=== PATIENT | male | born 1995 | race Caucasian/White ===

== ENCOUNTER 2021-09-07 23:24 | Emergency (ER) | payer OTHER, SELFPAY ==
--- NOTE | ~2021-09-07 | CT_ITS ---
EXAMINATION: CT abdomen pelvis w con INDICATION: Abdominal pain TECHNIQUE: Computed tomographic images of the abdomen and pelvis were obtained after the administrati on of 100 cc of Omnipaque 350 intravenous contrast. The dose-length product (DLP) was 183.63 mGy-cm. Automated exposure control and iterative reconstruction technique were employed. COMPARISON: None available FINDINGS: The lung bases are clear. The heart size is normal. There is periportal edema of the liver. The spleen, pancreas, gallbladder, and adrenal glands are normal. The kidneys are unremarkable. No p athologically enlarged abdominal or pelvic lymph nodes are identified. There is no free intraperitone al gas or evidence of bowel obstruction. There is a small volume of free fluid in the pelvis of uncle ar etiology. IMPRESSION: 1. Periportal edema and small volume of pelvic ascites of unclear etiology. Reviewed, dictated and finalized at location A.
[2021-09-07 23:25] VITALS: BP 121/76; PULSE 59; RESP 18; TEMP 36.5; O2SAT 100
--- NOTE | 2021-09-07 23:51 | ED.GENADULT ---
HPI - General Adult General Chief complaint: Abdominal Pain Stated complaint: Nausea/Vomitting Time Seen by Provider: 09/07/21 23:39 History of Present Illness HPI narrative: Patient 25-year-old gentleman who presents to emergency department with chief complaint of abdominal pain. Patient reports he has history of gastritis and has been scoped recently at [facility] in [facility]. Patient states that over the last several days he has had epigastric discomfort and nausea and vomiting patient reports has been unable to keep fluids down and unable to eat. Patient reports not had a bowel movement reports his abdomen is diffusely tender reports the pain is worse with movement and improved with rest also worsened whenever he attempts to eat or drink. Patient reports no prior surgical history to the abdomen but has had multiple scopes Related Data Allergies Allergy/AdvReac Type Severity Reaction Status Date / Time carbinoxamine [From [facility]] Allergy Hives Verified 09/08/21 00:03 pseudoephedrine [From [facility]] Allergy Hives Verified 09/08/21 00:03 Review of Systems Review of Systems: A 10 system review of systems was completed on the patient and is negative except for what is stated in the HPI. Nursing and ancillary documentation was reviewed. Exam Narrative: GENERAL: Well-appearing, well-nourished, and in no acute distress. HEAD: Normocephalic, atraumatic. EYES: PERRLA and EOMI. ENT: Nares clear, no rhinorrhea or epistaxis. Mucous membranes moist. NECK: Supple. CHEST: Clear to auscultation. No respiratory distress. HEART: Regular rate and rhythm. No murmur heard. Normal peripheral pulses. ABDOMEN: Soft, diffusely tender to palpation, nondistended, normal active bowel sounds. EXTREMITIES: Normal range of motion. No edema. SKIN: Warm, dry, no rash. NEURO: No focal deficits. Alert and oriented x3. PSYCH: Normal mood and affect. Course Vital Signs Vital signs: Vital Signs Temperature 36.5 C 09/07/21 23:25 Pulse Rate 59 L 09/07/21 23:25 Respiratory Rate 18 09/07/21 23:25 Blood Pressure 121/76 09/07/21 23:25 Pulse Oximetry 100 09/07/21 23:25 Temperature 36.5 C 09/07/21 23:25 Pulse Rate 62 09/08/21 01:51 Respiratory Rate 17 09/08/21 01:51 Blood Pressure 122/76 09/08/21 01:51 Pulse Oximetry 99 09/08/21 01:51 Medical Decision Making Vital Signs Vital Signs: Vital Signs Temperature 36.5 C 09/07/21 23:25 Pulse Rate 59 L 09/07/21 23:25 Respiratory Rate 18 09/07/21 23:25 Blood Pressure 121/76 09/07/21 23:25 Pulse Oximetry 100 09/07/21 23:25 Temperature 36.5 C 09/07/21 23:25 Pulse Rate 62 09/08/21 01:51 Respiratory Rate 17 09/08/21 01:51 Blood Pressure 122/76 09/08/21 01:51 Pulse Oximetry 99 09/08/21 01:51 Lab Data Result diagrams: 09/08/21 00:07 09/08/21 00:07 Labs: Lab Results 09/08/21 09/08/21 09/08/21 Range/Units 00:07 00:07 00:07 WBC 6.1 (4.5-10.0) K/mm3 RBC 4.62 (4.6-6.20) M/mm3 Hgb 14.5 (14.0-18.0) g/dL Hct 41.3 L (42.0-52.0) % MCV 89.4 (80-100) fl MCH 31.4 (26-34) pg MCHC 35.1 (32-36) g/dl RDW 12.0 (11.5-14.5) % Plt Count 256 (150-375) k/mm3 MPV 9.6 (7.4-10.4) fl Immature Gran % (Auto) 0.3 (0-0.5) % Neut % (Auto) 48.7 (45.5-73.1) % Lymph % (Auto) 40.4 (18.3-44.2) % [place] % (Auto) 8.1 (2.6-8.5) % Eos % (Auto) 1.0 (0-4.4) % Baso % (Auto) 1.5 H (0.2-1.2) % Lymph # (Auto) 2.48 (0.9-3.2) K/mm3 [place] # (Auto) 0.5 (0.1-0.6) K/mm3 Eos # (Auto) 0.1 (0-0.3) K/mm3 Baso # (Auto) 0.1 (0.0-0.1) K/mm3 Abs Immat Gran (auto) 0.02 (0.00-0.031) K/mm3 Absolute Neuts (auto) 3.0 (1.3-6.7) K/mm3 Absolute Nucleated RBC 0.0 (0.0-0.012) K/mm3 Nucleated RBC % 0.0 (0.0-0.2) % Sodium 140 (137-145) mmol/L Potassium 3.4 (3.4-5.0) mmol/L Chloride 105 (98-107) mmol/L Carbon Dioxide 26 (22-30) m
[2021-09-08] MEDS: SODIUM CHLORIDE 0.9% IV 1,000 ML 999 ML IV CONT (00:05)
[2021-09-08] MEDS: PANTOPRAZOLE SODIUM IV 40 MG VIAL IV PUSH (00:05)
[2021-09-08 00:20] LABS: Basophils Absolute Auto 0.1 K/mm3 (0.0-0.1); Basophils Percent Auto 1.5 % (0.2-1.2); Eosinophils Absolute Auto 0.1 K/mm3 (0-0.3); Hematocrit 41.3 % (42.0-52.0); Hemoglobin 14.5 g/dL (14.0-18.0); Immature Granulocyte Absolute 0.02 K/mm3 (0.00-0.031); Immature Granulocyte Percent A 0.3 % (0-0.5); Lymphocytes Absolute Auto 2.48 K/mm3 (0.9-3.2); Lymphocytes Percent Auto 40.4 % (18.3-44.2); Mean Corpuscular HGB Conc 35.1 g/dl (32-36); Mean Corpuscular Hemoglobin 31.4 pg (26-34); Mean Corpuscular Volume 89.4 fl (80-100); Mean Platelet Volume 9.6 fl (7.4-10.4); Monocytes Absolute Auto 0.5 K/mm3 (0.1-0.6); Monocytes Percent Auto 8.1 % (2.6-8.5); Neutrophils Percent Auto 48.7 % (45.5-73.1); Platelet Count Result 256 k/mm3 (150-375); Red Blood Count 4.62 M/mm3 (4.6-6.20); White Blood Count 6.1 K/mm3 (4.5-10.0)
[2021-09-08 00:28] LABS: Lipase 118 U/L (23-300)
[2021-09-08 00:30] LABS: Alanine Aminotransferase 12 U/L (4-50); Albumin Level 4.5 g/dL (3.5-5.1); Alkaline Phosphatase 62 U/L (38-126); Anion Gap 9 mmol/L (8-16); Aspartate Amino Transferase 21 U/L (17-59); Bilirubin,Total 0.7 mg/dL (0.2-1.3); Blood Urea Nitrogen 5 mg/dL (9-20); Calcium 9.4 mg/dL (8.4-10.2); Carbon Dioxide 26 mmol/L (22-30); Chloride 105 mmol/L (98-107); Estimated CRCL calculation 109 ml/min; Estimated Glomerular Filt Rate > 60; Glucose 107 mg/dL (65-110); Potassium 3.4 mmol/L (3.4-5.0); Sodium 140 mmol/L (137-145)
[2021-09-08 00:34] LABS: Add Urine Microscopic? NO; Appearance Urine Clear (Clear); Bilirubin Urine Negative (Negative); Blood Urine Negative (Negative); Color Urine Straw (Yellow); Glucose Urine UA Negative (Negative); Ketones Urine Negative (Negative); Leukocyte Esterase Ur Negative LEU/UL (Negative); Nitrate Urine Negative (Negative); Protein Urine Negative (Negative); Specific Grav Ur 1.006 (1.001-1.035); Urobilinogen Urine Negative mg/dL (<2.0)
[2021-09-08 00:44] LABS: Lactic Acid Reflex 1.2 mmol/L (0.7-2.1)
[2021-09-08 01:51] VITALS: BP 122/76; PULSE 62; RESP 17; O2SAT 99
[2021-09-08] MEDS: BELLADONNA ALK/PHENOB ELIX 10 ML, MAG HYDROX/ALUMINUM HYD/SIMETH 30 ML, LIDOCAINE HCL 2... PO (02:17)
[2021-09-08 03:13] VITALS: BP 109/70; PULSE 55; RESP 16; O2SAT 100
== END 2021-09-08 03:18 | disposition home or self-care (01) ==
PROVIDERS: Emergency Provider Emergency Medicine
DX: K29.00 Acute gastritis without bleeding (principal)
CPT/HCPCS: 36415; 74177; 80053; 81003; 83605; 83690; 85025; 96361; 96374; 99284; A9270; C9113; J7030; Q9967

== ENCOUNTER 2022-07-29 19:35 | Emergency (ER) | payer OTHER, MEDICAID, SELFPAY ==
[2022-07-29 19:41] VITALS: BP 116/67; PULSE 65; RESP 16; TEMP 36.8; O2SAT 100
[2022-07-29 20:06] LABS: Basophils Absolute Auto 0.1 K/mm3 (0.0-0.1); Basophils Percent Auto 1.2 % (0.2-1.2); Eosinophils Absolute Auto 0.1 K/mm3 (0-0.3); Hematocrit 47.9 % (42.0-52.0); Hemoglobin 16.3 g/dL (14.0-18.0); Immature Granulocyte Absolute 0.02 K/mm3 (0.00-0.031); Immature Granulocyte Percent A 0.4 % (0-0.5); Lymphocytes Absolute Auto 1.49 K/mm3 (0.9-3.2); Lymphocytes Percent Auto 29.3 % (18.3-44.2); Mean Corpuscular Hemoglobin 30.4 pg (26-34); Mean Corpuscular Volume 89.2 fl (80-100); Mean Platelet Volume 9.3 fl (7.4-10.4); Monocytes Absolute Auto 0.4 K/mm3 (0.1-0.6); Monocytes Percent Auto 7.3 % (2.6-8.5); Neutrophils Absolute Auto 3.1 K/mm3 (1.3-6.7); Neutrophils Percent Auto 60.8 % (45.5-73.1); Platelet Count Result 308 k/mm3 (150-375); Red Blood Count 5.37 M/mm3 (4.6-6.20); Red Cell Distribution Width 12.1 % (11.5-14.5); White Blood Count 5.1 K/mm3 (4.5-10.0)
[2022-07-29 20:19] LABS: Alanine Aminotransferase 25 U/L (6-50); Albumin Level 5.5 g/dL (3.5-5.1); Alkaline Phosphatase 88 U/L (38-126); Anion Gap 14 mmol/L (8-16); Aspartate Amino Transferase 29 U/L (17-59); Bilirubin,Total 1.1 mg/dL (0.2-1.3); Blood Urea Nitrogen 10 mg/dL (9-20); Calcium 10.5 mg/dL (8.4-10.2); Carbon Dioxide 24 mmol/L (22-30); Chloride 101 mmol/L (98-107); Estimated CRCL calculation 107 ml/min; Estimated Glomerular Filt Rate > 60; Glucose 103 mg/dL (65-110); Potassium 4.3 mmol/L (3.4-5.0); Sodium 139 mmol/L (137-145)
[2022-07-29 22:30] VITALS: BP 122/77; PULSE 87; RESP 22
--- NOTE | 2022-07-30 00:15 | ED.GENADULT ---
HPI - General Adult General Chief complaint: Unspecified Stated complaint: trouble swallowing Time Seen by Provider: 07/29/22 23:36 History of Present Illness HPI narrative: This is a 26-year-old male presents to ED with trouble swallowing x1 year. Patient has been seen by multiple GI physicians and has motility issues of his esophagus. He is able to tolerate soft foods and liquids but has significant difficulty with solids. When I asked the patient why he was in the emergency department today after being here for 1 year he came to light that he was recently visiting his blood brother and they were backyard wrestling and he got power bombed onto a bed. He then had significant neck pain which he thinks is now possibly interfering with the swallowing. His pain is primarily in the paraspinal muscles of the neck and the trapezius muscle. Patient denies any other injury. He has not taken anything for pain. Related Data Allergies Allergy/AdvReac Type Severity Reaction Status Date / Time carbinoxamine [From [facility]] Allergy Hives Verified 09/08/21 00:03 pseudoephedrine [From [facility]] Allergy Hives Verified 09/08/21 00:03 Review of Systems Review of Systems: CONSTITUTIONAL: Denies night sweats. EYES: No eye pain ENT: Denies rhinorrhea CARDIOVASCULAR: Denies palpitations RESPIRATORY: Denies hemoptysis GASTROINTESTINAL: Denies hematemesis GENITOURINARY: Denies hematuria. SKIN: Denies rash MUSCULOSKELETAL: Denies myalgia. NEUROLOGIC: Denies weakness. PSYCHIATRIC: Denies delusions PMFSH Past Medical History Medical History (Updated 07/30/22 @ 00:49 by Fernando Jimenez MD) Anxiety Esophageal motility disorder Normal colonoscopy Surgical History Surgical History (Updated 07/30/22 @ 00:46 by Fernando Jimenez MD) History of esophagogastroduodenoscopy (EGD) Social History Social History (Updated 07/30/22 @ 00:47 by Fernando Jimenez MD) Social History: Patient drinks alcohol occasionally, patient is a heavy marijuana user, patient vapes. Exam Narrative: APPEARANCE: No apparent distress. Patient is anxious Head atraumatic. EYES: PERRLA/EOMI, NOSE: Normal no drainage NECK: Supple, Trachea midline RESPIRATORY: CTAB, No increased work of breathing. CARDIOVASCULAR: S1S2 appreciated ABDOMINAL: Soft, nontender, nondistended, MUSCULOSKELETAl: No obvious deformities patient has tenderness to the paraspinal muscles and trapezius. There is no midline cervical tenderness. NEURO: Alert. Cranial nerves 2-12 grossly intact. Sensation light touch, motor function cerebellar function intact for 4 extremities. Gait exam was normal. SKIN:: Warm, dry. Normal color PSYCHIATRIC: Normal affect Course Vital Signs Vital signs: Vital Signs Temperature 98.2 F 07/29/22 19:41 Pulse Rate 65 07/29/22 19:41 Respiratory Rate 16 07/29/22 19:41 Blood Pressure 116/67 07/29/22 19:41 Pulse Oximetry 100 07/29/22 19:41 Oxygen Delivery Room Air 07/29/22 19:41 Temperature 98.2 F 07/29/22 19:41 Pulse Rate 87 07/29/22 22:30 Respiratory Rate 22 H 07/29/22 22:30 Blood Pressure 122/77 07/29/22 22:30 Pulse Oximetry 100 07/29/22 19:41 Oxygen Delivery Room Air 07/29/22 19:41 Medical Decision Making [facility] Narrative Medical decision making narrative: This is a patient presenting to the ED with a chief complaint of difficulty swallowing. However patient has had difficulty swallowing for 1 year and have not been any significant changes in that. He has an appointment with a GI doctor on the . After lengthy interview it appears that the patient is actually here because he has been having neck pain due to backyard wrestling with his younger brother. Patient will be treated with Motrin and Robaxin. No indication for imaging at this time. Patient will be discharged home with primary care follow-up. Vital Signs Vital Signs: Vital Signs Temperature 98.2 F 07/29/22 19:41 Pulse Rate 65 0
[2022-07-30] MEDS: ACETAMINOPHEN 500 MG TABLET 1000 MG PO (01:07)
[2022-07-30] MEDS: methocarbamoL 750 MG TABLET 1500 MG PO (01:08)
[2022-07-30 01:20] VITALS: PULSE 87; RESP 18; O2SAT 98
== END 2022-07-30 01:20 | disposition home or self-care (01) ==
PROVIDERS: Emergency Medicine; Emergency Provider Emergency Medicine
DX: M54.2 Cervicalgia (principal); K22.9 Disease of esophagus, unspecified; F41.9 Anxiety disorder, unspecified
CPT/HCPCS: 36415; 80053; 85025; 99283; A9270